=== PATIENT | male | born 1935 | race Caucasian/White ===

== ENCOUNTER 2023-05-11 12:54 | Emergency (ER) | payer OTHER ==
[~2023-05-11] VITALS: Ht 167.6 cm; Wt 77.5 kg
[2023-05-11 13:04] VITALS: BP 145/74; PULSE 83; RESP 16; O2SAT 99
[2023-05-11 13:48] LABS: Basophils # (auto) 0 10 ^3/uL (0-0.2); Eosinophils # (auto) 0 10 ^3/uL (0-0.8)
[2023-05-11 13:49] LABS: Basophils % (auto) 0.4 % (0.0-2.0); Eosinophils % (auto) 0.4 % (0.0-7.0); Hematocrit 31.5 % (41.0-53.0); Hemoglobin 9.8 g/dL (13.5-17.5); Lymphocytes # (auto) 1.2 10 ^3/uL (0.4-5.4); Lymphocytes % (auto) 15.9 % (10.0-50.0); Mean Corpuscular Hemoglobin 31.9 pg (28.0-32.0); Mean Corpuscular Volume 102.9 fL (80.0-100.0); Monocytes # (auto) 0.3 10 ^3/uL (0-1.3); Monocytes % (auto) 4.6 % (0.0-12.0); Neutrophils # (auto) 5.8 10 ^3/uL (1.6-8.6); Neutrophils % (auto) 78.7 % (37.0-80.0); Nucleated Red Blood Cells % 0.1 %; Red Blood Cells 3.06 10^6/uL (4.5-5.90); White Blood Cell 7.3 10^3/uL (4.4-10.8)
[2023-05-11 14:18] LABS: Alanine Aminotransferase 18 U/L (7-40); Alkaline Phosphatase 73 U/L (46-116); Anion Gap 12 (5-15); Aspartate Aminotransferase 13 U/L (13-40); BUN/Creatinine Ratio 20.4 (10.0-20.0); Blood Urea Nitrogen 73 mg/dL (9-23); Calcium 8.9 mg/dL (8.7-10.4); Carbon Dioxide 15 mmol/L (20-30); Chloride 112 mmol/L (98-107); Glucose 135 mg/dL (74-106); Magnesium 1.9 mg/dL (1.6-2.6); Potassium 4.3 mmol/L (3.5-5.1); Sodium 139 mmol/L (136-145)
[2023-05-11 14:19] LABS: Bilirubin, Total 0.3 mg/dL (0.2-1.0); Total Protein 6.2 g/dL (5.7-8.2)
[2023-05-11] MEDS ORDERED: LACTATED RINGER'S 2,000 ML IV ONE (15:00)
[2023-05-11 15:17] LABS: Urine Epithelial Cast None Seen /hpf (<5)
[2023-05-11 15:51] LABS: Urine Bacteria MANY /hpf (None Seen); Urine Blood 3+ /uL (Negative); Urine Clarity HAZY (Clear); Urine Color Colorless (Yellow); Urine Protein, UAD 2+ (Negative); Urine Specific Gravity 1.013 (1.001-1.035); Urine Urobilinogen Normal (Negative); Urine WBC 778 /hpf (0 - 3); Urine WBC Clumps PRESENT /hpf (None Seen)
== END 2023-05-11 15:35 | disposition left against medical advice (07) ==
LOC: ER 12:54 → EDBD 12:54 → ER 15:35
DX: R55 Syncope and collapse (principal); E87.20 Acidosis, unspecified; N17.9 Acute kidney failure, unspecified; I10 Essential (primary) hypertension
CPT/HCPCS: 36415; 70450; 71045; 80053; 81001; 83735; 83880; 84484; 85025; 93005